=== PATIENT | female | born 1980 | race Caucasian/White ===

== ENCOUNTER 2017-03-09 09:14 | Emergency (ER) | payer MEDICAID ==
[~2017-03-09] VITALS: Ht 162.6 cm; Wt 92.0 kg
[2017-03-09 09:21] VITALS: BP 144/70
== END 2017-03-09 10:00 | disposition home or self-care (01) ==
LOC: ER 09:53
DX: B02.9 Zoster without complications (principal); M79.622 Pain in left upper arm
CPT/HCPCS: 99283